=== PATIENT | female | born 1960 | race Asian ===

== ENCOUNTER 2018-01-19 08:37 | Day surgery (SDC) | payer MEDICAID ==
[2018-01-18 10:45] LABS: BASOPHILS % (AUTO) 0.3 % (0.0-2.0); EOSINOPHILS # (AUTO) 0.2 K/uL (0-0.4); EOSINOPHILS % (AUTO) 3.3 % (0.0-4.0); HEMATOCRIT 41.2 % (36-48); HEMOGLOBIN 13.5 g/dL (12.0-16.0); LYMPHOCYTES # (AUTO) 2.7 K/uL (2.5-16.5); LYMPHOCYTES % (AUTO) 37.7 % (20.5-51.1); MEAN CORPUSCULAR HEMOGLOBIN 31 pg (27-31); MEAN CORPUSCULAR HGB CONC 33 g/dL (33-37); MONOCYTES # (AUTO) 0.4 K/uL (0.8-1.0); MONOCYTES % (AUTO) 4.9 % (1.7-9.3); NEUTROPHILS # (AUTO) 3.9 K/uL (1.8-7.7); NEUTROPHILS % (AUTO) 53.8 % (42.2-75.2); PLATELET COUNT (AUTO) 155 K/uL (140-450); RED BLOOD CELL COUNT(AUTO) 4.43 MIL/uL (4.20-5.40); WHITE BLOOD COUNT (AUTO) 7.2 K/uL (4.8-10.8)
[2018-01-18 10:53] LABS: ANION GAP 14.7 (8-16); CARBON DIOXIDE 29.3 mmol/L (21-32); CREATININE 0.6 mg/dL (0.6-1.3)
[~2018-01-19] VITALS: Ht 157.5 cm; Wt 61.7 kg
[~2018-01-19 08:37] MED LIST: ASPI-1093 PO; METF1000 PO
[2018-01-19] MEDS ORDERED: BUPIVACAINE-MPF 0.25% 30 ML VIAL INJ ONE (09:22)
[2018-01-19] MEDS ORDERED: LIDOCAINE/EPI 1% 1:100000 20 ML VIAL INJ ONE (09:23)
[2018-01-19] MEDS ORDERED: MIDAZOLAM 2 MG/2 ML VIAL ONE (09:38)
[2018-01-19] MEDS ORDERED: fentaNYL 0.05 MG/ML VIAL ONE (09:38)
[2018-01-19] MEDS ORDERED: MEPERIDINE 25 MG/ML SYR IVP PRN (10:20)
[2018-01-19] MEDS ORDERED: NACL 0.9% 1,000 ML IV SCH (10:20)
[2018-01-19] MEDS ORDERED: ONDANSETRON 4 MG/2 ML VIAL IV PRN (10:20)
[2018-01-19] MEDS ORDERED: HYDROcodone/APAP 5/325 MG 1 TAB TAB PO PRN (10:20)
[2018-01-19] MEDS ORDERED: MORPHINE SULFATE 4 MG/ML SYR IV PRN (10:20)
[2018-01-19] MEDS ORDERED: MORPHINE SULFATE 4 MG/ML SYR IVP PRN (10:20)
[2018-01-19] MEDS ORDERED: ONDANSETRON 4 MG/2 ML VIAL IVP PRN (10:20)
[2018-01-19] MEDS ORDERED: diphenhydrAMINE 50 MG/ML VIAL IVP PRN (10:20)
[2018-01-19] MEDS ORDERED: HYDROmorphone PFS 2 MG/ML SYR IVP PRN (10:20)
== END 2018-01-19 11:20 | disposition home or self-care (01) ==
LOC: MDS 08:37 → MMU 08:38 → MDS 11:20
PROVIDERS: ATTEND Surgery
DX: Z45.2 Encounter for adjustment and management of vascular access device (principal); E11.9 Type 2 diabetes mellitus without complications; K21.9 Gastro-esophageal reflux disease without esophagitis; F32.9 Major depressive disorder, single episode, unspecified; M19.90 Unspecified osteoarthritis, unspecified site; Z80.0 Family history of malignant neoplasm of digestive organs; Z85.3 Personal history of malignant neoplasm of breast; Z88.1 Allergy status to other antibiotic agents; Z79.84 Long term (current) use of oral hypoglycemic drugs; Z98.890 Other specified postprocedural states; Z79.899 Other long term (current) drug therapy
CPT/HCPCS: 36415; 36590; 71045; 80048; 82948; 85025; 93005; J0690; J2001; J2250; J3010; J3490; J7030; J7060